=== PATIENT | male | born 1975 | race Caucasian/White ===

== ENCOUNTER 2019-03-18 17:53 | Emergency (ER) | payer OTHER ==
[~2019-03-18] VITALS: Ht 188 cm; Wt 86.2 kg
[2019-03-18] MEDS ORDERED: Bactrim Ds Tab1 EACH PO (19:32)
[2019-03-18] MEDS ORDERED: CEPH500 PO (19:32)
== END 2019-03-18 20:12 | disposition home or self-care (01) ==
LOC: ER 17:53
DX: S62.650A Nondisplaced fracture of middle phalanx of right index finger, initial encounter for closed fracture (principal); S62.652A Nondisplaced fracture of middle phalanx of right middle finger, initial encounter for closed fracture; W01.198A Fall on same level from slipping, tripping and stumbling with subsequent striking against other object, initial encounter
CPT/HCPCS: 12002; 29125; 73130; 90471; 90714; 99283-25